=== PATIENT | male | born 1960 | race Two or more races ===

== ENCOUNTER 2022-08-24 16:01 | Inpatient (IN) ==
[2022-08-24 17:36] LABS: INR 1.33 (0.88-1.18)
[2022-08-24 17:46] LABS: Albumin 3.4 g/dL (3.2-5.2); Albumin/Globulin Ratio 1.3 (1-3); C Reactive Protein 210.68 mg/L (<8.01); Calcium 8.4 mg/dL (8.6-10.3); Creatinine, Serum 0.78 mg/dL (0.67-1.17); Globulin 2.6 g/dL (2-4); Potassium 3.7 mmol/L (3.5-5.0); Total Bilirubin 0.6 mg/dL (0.2-1.0); eGFR CKD-EPI 102.1 (>60)
[2022-08-24] MEDS ORDERED: NS 0.9% 1000 ml BAG 1,000 ML IV ONE ×2 (17:49→22:08)
[2022-08-24 18:10] LABS: ABS Lymphocytes 0.3 10^3/ul (1.0-4.8); ABS Monocytes 0.3 10^3/ul (0-0.8); Eosinophil % 5.8 %; Hematocrit 16 % (42-52); Lymphocyte % 49.7 %; Mean Corpuscular HGB Conc 33 g/dL (31-36); Mean Corpuscular Hemoglobin 28 pg (27-31); Mean Corpuscular Volume 86 fL (80-94); Mean Platelet Volume 8.9 fL (7.4-10.4); Nucleated Red Blood Cells % 0.1; Platelet Count 189 10^3/uL (150-450); Red Blood Count 1.86 10^6 /uL (4.18-5.48); Red Cell Distribution Width 15 % (10-15); White Blood Count 0.7 10^3/uL (3.5-10.8)
[2022-08-24 18:15] LABS: Urine Appearance Clear; Urine Bilirubin Negative (Negative); Urine Blood Negative (Negative); Urine Color Yellow; Urine Glucose Negative (Negative); Urine Ketones Negative (Negative); Urine Nitrite Negative (Negative); Urine Protein Negative (Negative); Urine Specific Gravity 1.017 (1.002-1.030); Urine Urobilinogen Negative (Negative)
[2022-08-24 18:35] LABS: High Sensitivity Troponin 1 Hr 7 pg/mL (<20)
[2022-08-24] MEDS ORDERED: Cefepime 2 GM in Dextrose 2 GM/50 ML BAG IV ONE (18:48)
[2022-08-24 19:07] LABS: Anisocytosis 1+
[2022-08-24 19:09] LABS: Microcytosis 1+; Polychromasia 1+
[2022-08-24] MEDS ORDERED: Al Hydrox/Mg Hydrox/Simet LIQ 30 ML UDC PO PRN (20:14)
[2022-08-24] MEDS ORDERED: NS 0.9% 1000 ml BAG 1,000 ML IV SCH (20:30)
[2022-08-24 20:59] LABS: Hemoglobin 5.3 g/dL (14.0-18.0)
[2022-08-25] MEDS ORDERED: NS 0.9% 1000 ml BAG 1,000 ML IV ONE (01:51)
[2022-08-25 04:23] LABS: Hematocrit 26 % (42-52); Hemoglobin 8.7 g/dL (14.0-18.0); Mean Corpuscular HGB Conc 33 g/dL (31-36); Mean Corpuscular Hemoglobin 28 pg (27-31); Mean Corpuscular Volume 85 fL (80-94); Mean Platelet Volume 8.6 fL (7.4-10.4); Platelet Count 152 10^3/uL (150-450); Red Blood Count 3.08 10^6 /uL (4.18-5.48); Red Cell Distribution Width 16 % (10-15); White Blood Count 0.7 10^3/uL (3.5-10.8)
[2022-08-25 04:53] LABS: ABS Lymphocytes 0.3 10^3/ul (1.0-4.8); ABS Monocytes 0.3 10^3/ul (0-0.8); Eosinophil % 5.6 %; Lymphocyte % 45.8 %; Nucleated Red Blood Cells % 0.2
[2022-08-25 05:06] LABS: Calcium 7.7 mg/dL (8.6-10.3); Potassium 3.4 mmol/L (3.5-5.0)
[2022-08-25 05:11] LABS: Creatinine, Serum 0.63 mg/dL (0.67-1.17); eGFR CKD-EPI 108.9 (>60)
[2022-08-25] MEDS: Cefepime 2 GM in Dextrose 2 GM/50 ML BAG IV SCH ×2 (05:56→14:51)
[2022-08-25] MEDS ORDERED: BISOPROLOL 2.5 MG PO SCH (09:00)
[2022-08-25] MEDS ORDERED: Enoxaparin 40 MG/0.4 ML SYR SUBCUT SCH (09:00)
[2022-08-25] MEDS ORDERED: ENALAPRIL 5 MG PO SCH (09:10)
[2022-08-25] MEDS: TAMSULOSIN 0.4 MG PO SCH (09:39)
[2022-08-25] MEDS: PANTOPRAZOLE 40 MG PO SCH (09:41)
[2022-08-25] MEDS ORDERED: Potassium Chlor 20 meq TAB.ER PO ONE ×2 (10:54→15:19)
[2022-08-25 12:19] LABS: Magnesium 1.1 mg/dL (1.9-2.7)
[2022-08-25] MEDS ORDERED: Magnesium Sulfate IV 3 GM in NS 0.9% 100 ml BAG 100 ML IVPB ONE (13:02)
[2022-08-25] MEDS ORDERED: Lactated Ringers 1000 ml BAG 1,000 ML IV ONE (14:37)
[2022-08-25 14:49] LABS: Calcium 7.5 mg/dL (8.6-10.3); Creatinine, Serum 0.63 mg/dL (0.67-1.17); Magnesium 1.1 mg/dL (1.9-2.7); Potassium 3.8 mmol/L (3.5-5.0); eGFR CKD-EPI 108.9 (>60)
[2022-08-25] MEDS: ROSUVASTATIN 10 MG PO SCH (17:30)
[2022-08-25] MEDS: RIVAROXABAN 2.5 MG PO SCH (20:18)
[2022-08-25] MEDS: GABAPENTIN 100 MG PO SCH (20:19)
[2022-08-25] MEDS: Lactated Ringers 1000 ml BAG 1,000 ML IV SCH (20:19)
[2022-08-25] MEDS ORDERED: Lactated Ringers 1000 ml BAG 500 ML IV ONE (20:49)
[2022-08-26] MEDS: Cefepime 2 GM in Dextrose 2 GM/50 ML BAG IV SCH ×4 (00:05→22:05)
[2022-08-26] MEDS: Lactated Ringers 1000 ml BAG 1,000 ML IV SCH ×2 (01:04→11:15)
[2022-08-26] MEDS: LEVOTHYROXINE 100 MCG PO SCH (05:24)
[2022-08-26 06:15] LABS: Hematocrit 24 % (42-52); Hemoglobin 7.9 g/dL (14.0-18.0); Mean Corpuscular HGB Conc 34 g/dL (31-36); Mean Corpuscular Hemoglobin 29 pg (27-31); Mean Corpuscular Volume 85 fL (80-94); Mean Platelet Volume 8.4 fL (7.4-10.4); Platelet Count 166 10^3/uL (150-450); Red Blood Count 2.77 10^6 /uL (4.18-5.48); Red Cell Distribution Width 16 % (10-15); White Blood Count 1.1 10^3/uL (3.5-10.8)
[2022-08-26 06:37] LABS: Albumin 2.8 g/dL (3.2-5.2); Albumin/Globulin Ratio 1.4 (1-3); Calcium 7.6 mg/dL (8.6-10.3); Creatinine, Serum 0.61 mg/dL (0.67-1.17); Magnesium 1.3 mg/dL (1.9-2.7); Potassium 3.8 mmol/L (3.5-5.0); Total Bilirubin 0.8 mg/dL (0.2-1.0); Total Protein 4.8 g/dL (6.4-8.9)
[2022-08-26 07:26] LABS: RBC Morphology Normal (Normal)
[2022-08-26 07:27] LABS: Anisocytosis 1+
[2022-08-26 07:28] LABS: ABS Lymphocytes 0.2 10^3/ul (1.0-4.8); ABS Monocytes 0.5 10^3/ul (0-0.8); ABS Neutrophils 0.3 10^3/ul (1.5-7.7); Eosinophil % 2.9 %; Lymphocyte % 21.5 %; Nucleated Red Blood Cells % 0.3
[2022-08-26] MEDS: TAMSULOSIN 0.4 MG PO SCH ×2 (08:46→09:06)
[2022-08-26] MEDS: PANTOPRAZOLE 40 MG PO SCH (08:47)
[2022-08-26] MEDS: GABAPENTIN 100 MG PO SCH ×2 (08:47→22:05)
[2022-08-26] MEDS: RIVAROXABAN 2.5 MG PO SCH ×2 (08:50→22:14)
[2022-08-26] MEDS ORDERED: Magnesium Sulf 4 GM/100 ML IV 4,000 MG/100 ML BAG IVPB ONE (09:02)
[2022-08-26] MEDS: ROSUVASTATIN 10 MG PO SCH (17:07)
[2022-08-27] MEDS: LEVOTHYROXINE 100 MCG PO SCH (05:34)
[2022-08-27] MEDS: Cefepime 2 GM in Dextrose 2 GM/50 ML BAG IV SCH (05:35)
[2022-08-27] MEDS: Lactated Ringers 1000 ml BAG 1,000 ML IV SCH (05:35)
[2022-08-27 06:29] LABS: Hematocrit 24 % (42-52); Hemoglobin 8.1 g/dL (14.0-18.0); Mean Corpuscular HGB Conc 34 g/dL (31-36); Mean Corpuscular Hemoglobin 29 pg (27-31); Mean Corpuscular Volume 86 fL (80-94); Mean Platelet Volume 8.2 fL (7.4-10.4); Platelet Count 174 10^3/uL (150-450); Red Blood Count 2.81 10^6 /uL (4.18-5.48); Red Cell Distribution Width 16 % (10-15); White Blood Count 2.4 10^3/uL (3.5-10.8)
[2022-08-27 06:43] LABS: Calcium 7.8 mg/dL (8.6-10.3); Creatinine, Serum 0.54 mg/dL (0.67-1.17); Magnesium 1.7 mg/dL (1.9-2.7); Potassium 3.6 mmol/L (3.5-5.0); eGFR CKD-EPI 114.1 (>60)
[2022-08-27 07:17] LABS: Anisocytosis 1+; RBC Morphology Normal (Normal)
[2022-08-27 07:18] LABS: ABS Lymphocytes 0.3 10^3/ul (1.0-4.8); ABS Monocytes 0.6 10^3/ul (0-0.8); ABS Neutrophils 1.5 10^3/ul (1.5-7.7); Eosinophil % 1.7 %; Lymphocyte % 12.4 %; Nucleated Red Blood Cells % 0.4
[2022-08-27] MEDS ORDERED: Potassium Chloride LIQUID 20 MEQ/15 ML LIQUID PO ONE (08:47)
[2022-08-27] MEDS ORDERED: Magnesium Sulfate 2 gm BAG 2 GM/50 ML BAG IVPB ONE (08:48)
[2022-08-27] MEDS: PANTOPRAZOLE 40 MG PO SCH (09:27)
[2022-08-27] MEDS: GABAPENTIN 100 MG PO SCH (09:28)
[2022-08-27] MEDS: RIVAROXABAN 2.5 MG PO SCH (09:31)
[2022-08-27 15:15] VITALS: BP 94/63
== END 2022-08-27 13:00 | disposition home or self-care (01) | DRG 872 ==
LOC: ED 16:01 → EDHOLD 16:01 → SUATTDRO 20:05 → MEDTELE 23:51
PROVIDERS: ADMIT Internal Medicine; ATTEND Internal Medicine

== ENCOUNTER 2022-10-03 21:45 | Inpatient (IN) ==
[2022-10-03 22:12] LABS: ABS Eosinophils 0.1 10^3/ul (0-0.6); ABS Lymphocytes 0.3 10^3/ul (1.0-4.8); ABS Monocytes 0.5 10^3/ul (0-0.8); ABS Neutrophils 5.1 10^3/ul (1.5-7.7); Eosinophil % 2.2 %; Hematocrit 26 % (42-52); Hemoglobin 8.5 g/dL (14.0-18.0); Lymphocyte % 5.7 %; Mean Corpuscular HGB Conc 33 g/dL (31-36); Mean Corpuscular Hemoglobin 30 pg (27-31); Mean Corpuscular Volume 91 fL (80-94); Mean Platelet Volume 8.6 fL (7.4-10.4); Nucleated Red Blood Cells % 0.1; Platelet Count 100 10^3/uL (150-450); Red Blood Count 2.88 10^6 /uL (4.18-5.48); Red Cell Distribution Width 21 % (10-15); White Blood Count 6.1 10^3/uL (3.5-10.8)
[2022-10-03 22:21] LABS: INR 1.14 (0.88-1.18)
[2022-10-03 22:55] LABS: Albumin 3.7 g/dL (3.2-5.2); Albumin/Globulin Ratio 1.5 (1-3); Calcium 9.5 mg/dL (8.6-10.3); Creatinine, Serum 0.84 mg/dL (0.67-1.17); Globulin 2.4 g/dL (2-4); Potassium 3.9 mmol/L (3.5-5.0); Total Bilirubin 0.4 mg/dL (0.2-1.0); Total Protein 6.1 g/dL (6.4-8.9); eGFR CKD-EPI 99.8 (>60)
[2022-10-04 00:05] LABS: High Sensitivity Troponin 1 Hr 1405 pg/mL (<20)
[2022-10-04] MEDS ORDERED: Iodixanol (CONTRAST) 320 MG/ML 100 ML SDV IV ONE (00:20)
[2022-10-04] MEDS ORDERED: Ondansetron 4 mg VIAL 2 MG/ML 2 ml VIAL IV PRN (00:35)
[2022-10-04] MEDS ORDERED: NS 0.9% 1000 ml BAG 1,000 ML IV SCH (00:45)
[2022-10-04] MEDS ORDERED: Heparin DRIP 25,000 UNITS BAG 25,000 UNITS/500 ML BAG IV SCH (01:30)
[2022-10-04] MEDS ORDERED: Heparin 5000 UNITS/ML 1 mL VIAL IV SCH (02:00)
[2022-10-04] MEDS ORDERED: Enoxaparin 60 MG/0.6 ML SYR SUBCUT SCH ×2 (03:00→09:00)
[2022-10-04 05:33] LABS: Hematocrit 23 % (42-52); Hemoglobin 7.6 g/dL (14.0-18.0); Mean Corpuscular HGB Conc 33 g/dL (31-36); Mean Corpuscular Hemoglobin 29 pg (27-31); Mean Corpuscular Volume 89 fL (80-94); Mean Platelet Volume 8.2 fL (7.4-10.4); Platelet Count 86 10^3/uL (150-450); Red Cell Distribution Width 21 % (10-15); White Blood Count 6.6 10^3/uL (3.5-10.8)
[2022-10-04 06:12] LABS: Albumin 3.2 g/dL (3.2-5.2); Albumin/Globulin Ratio 1.4 (1-3); C Reactive Protein 108.85 mg/L (<8.01); Calcium 8.7 mg/dL (8.6-10.3); Creatinine, Serum 0.75 mg/dL (0.67-1.17); Globulin 2.3 g/dL (2-4); HDL Cholesterol 21.3 mg/dL; Potassium 3.9 mmol/L (3.5-5.0); Total Bilirubin 0.4 mg/dL (0.2-1.0); Total Protein 5.5 g/dL (6.4-8.9); eGFR CKD-EPI 103.3 (>60)
[2022-10-04 06:14] LABS: Urine Appearance Cloudy; Urine Bilirubin Negative (Negative); Urine Blood 2+ (Negative); Urine Color Yellow; Urine Glucose 2+(150 mg/dL) (Negative); Urine Ketones Trace (Negative); Urine Nitrite Negative (Negative); Urine Protein 3+(>=500 mg/dL) (Negative); Urine Specific Gravity 1.045 (1.002-1.030); Urine Urobilinogen Negative (Negative)
[2022-10-04 06:21] LABS: Urine Bacteria Absent (Absent); Urine Red Blood Cell 3+(>10/hpf) (Absent); Urine White Blood Cell 2+(11-20/hpf) (Absent)
[2022-10-04 06:23] LABS: Erythrocyte Sed Rate > 120 mm/Hr (0-19)
[2022-10-04 07:40] LABS: ABS Eosinophils 0.1 10^3/ul (0-0.6); ABS Lymphocytes 0.3 10^3/ul (1.0-4.8); ABS Monocytes 0.6 10^3/ul (0-0.8); ABS Neutrophils 5.5 10^3/ul (1.5-7.7); Eosinophil % 1.9 %; Lymphocyte % 4.8 %
[2022-10-04] MEDS ORDERED: Iohexol 300 (CONTRAST) 10 ML SDV IV ONE (10:29)
[2022-10-04 14:37] LABS: Hematocrit 24 % (42-52); Hemoglobin 7.8 g/dL (14.0-18.0); Mean Corpuscular HGB Conc 33 g/dL (31-36); Mean Corpuscular Hemoglobin 30 pg (27-31); Mean Corpuscular Volume 91 fL (80-94); Mean Platelet Volume 8.1 fL (7.4-10.4); Platelet Count 90 10^3/uL (150-450); Red Blood Count 2.65 10^6 /uL (4.18-5.48); Red Cell Distribution Width 21 % (10-15); White Blood Count 6.4 10^3/uL (3.5-10.8)
[2022-10-04 15:29] LABS: Ferritin 789.7 ng/mL (24-336)
[2022-10-04 16:40] VITALS: BP 124/87
[2022-10-04] MEDS ORDERED: Enoxaparin 100 MG/ML SYR SUBCUT ONE (17:00)
== END 2022-10-04 16:58 | disposition left against medical advice (07) | DRG 190 ==
LOC: ED 21:45 → SUATTDRO 10-04 00:15 → EDHOLD 10-04 00:15
PROVIDERS: ADMIT Student in an Organized Health Care Education/Training Program; ATTEND Internal Medicine